=== PATIENT | female | born 1970 | race Caucasian/White ===

== ENCOUNTER 2018-03-09 17:19 | Emergency (ER) | payer OTHER ==
[~2018-03-09] VITALS: Ht 172.7 cm; Wt 56.7 kg
[2018-03-09 18:19] LABS: URINE BILIRUBIN NEGATIVE (Negative); URINE BLOOD 3+ (Negative); URINE CLARITY TURBID; URINE COLOR YELLOW; URINE GLUCOSE-RANDOM* NEGATIVE (Negative); URINE KETONES NEGATIVE (Negative); URINE PROTEIN (DIPSTICK) 2+ (Negative); URINE SPECIFIC GRAVITY >= 1.030 (1.005-1.035); URINE UROBILINOGEN 0.2 E.U./dl (0.2-1.0)
[2018-03-09 18:23] LABS: URINE LEUKOCYTES-REFLEX 3+ (Negative); URINE NITRITE-REFLEX POSITIVE (Negative)
[2018-03-09 18:25] LABS: URINE RBC >20 Many /HPF (0-2)
[2018-03-09 18:26] LABS: BACTERIA-REFLEX >30 Many /HPF (None Seen); CASTS None Seen /LPF (None Seen); CRYSTALS None Seen /LPF (None Seen); SQUAMOUS 0-3 Few /LPF (0-3); URINE WBC-REFLEX >25 Many /HPF (0-5)
[2018-03-09 19:34] LABS: HEMATOCRIT 23.7 % (37.0-47.0); HEMOGLOBIN 7.2 gm/dL (12.0-15.0); MCH 24.2 pg (26.0-34.0); MCHC 30.4 g/dL (28.0-37.0); MCV 79.6 fL (80.0-100.0); RBC 2.98 mil/uL (4.20-5.00); RDW 17.9 % (10.5-14.5); WBC 6.5 thou/uL (4.0-11.0)
[2018-03-09 19:40] LABS: CALCIUM 8.8 mg/dL (8.5-10.1); CREATININE 0.7 mg/dL (0.6-1.0); POTASSIUM 3.7 mmol/L (3.5-5.1)
[2018-03-09 19:46] LABS: ALBUMIN 1.8 g/dL (3.4-5.0); TOTAL BILIRUBIN 0.2 mg/dL (<0.1-1.0); TOTAL PROTEIN 7.8 g/dL (6.4-8.2)
[2018-03-09] MEDS ORDERED: CIPRO500 MG PO (21:27)
[2018-03-09 23:43] VITALS: BP 93/59
== END 2018-03-09 23:44 | disposition home or self-care (01) ==
LOC: ER 17:19
PROVIDERS: Physician Assistant
DX: N39.0 Urinary tract infection, site not specified (principal); N32.89 Other specified disorders of bladder; Z88.1 Allergy status to other antibiotic agents; Z91.041 Radiographic dye allergy status; Z88.0 Allergy status to penicillin

== ENCOUNTER 2018-04-04 02:16 | Emergency (ER) | payer OTHER ==
[~2018-04-04] VITALS: Ht 172.7 cm; Wt 54.4 kg
[~2018-04-04 02:16] MED LIST: CIPRO500 MG PO
[2018-04-04] MEDS ORDERED: LIORESAL 10 MG10 MG PO (02:45)
[2018-04-04] MEDS ORDERED: DITROPAN XL5 M1 PO (02:46)
[2018-04-04] MEDS ORDERED: KLONOPIN2 MG PO (02:46)
[2018-04-04 03:08] LABS: CALCIUM 8.3 mg/dL (8.5-10.1); CREATININE 0.8 mg/dL (0.6-1.0); POTASSIUM 3.9 mmol/L (3.5-5.1)
[2018-04-04 03:21] LABS: ABSOLUTE NEUTROPHILS 3.7 thou/uL (1.4-8.2); BASOPHILS 0.5 % (0.0-2.0); EOSINOPHILS 1.5 % (0.0-3.0); HEMOGLOBIN 7.2 gm/dL (12.0-15.0); LYMPHOCYTES 17.7 % (24.0-44.0); MCH 22.9 pg (26.0-34.0); MCHC 29.8 g/dL (28.0-37.0); MCV 76.8 fL (80.0-100.0); PLATELET COUNT 299 thou/uL (150-400); POLYS 72.3 % (36.0-66.0); RBC 3.13 mil/uL (4.20-5.00); RDW 17.3 % (10.5-14.5); WBC 5.1 thou/uL (4.0-11.0)
[2018-04-04 03:21] LABS: URINE BILIRUBIN NEGATIVE (Negative); URINE BLOOD 3+ (Negative); URINE CLARITY TURBID; URINE COLOR YELLOW; URINE GLUCOSE-RANDOM* NEGATIVE (Negative); URINE KETONES NEGATIVE (Negative); URINE LEUKOCYTES-REFLEX 3+ (Negative); URINE NITRITE-REFLEX POSITIVE (Negative); URINE PROTEIN (DIPSTICK) 2+ (Negative); URINE SPECIFIC GRAVITY 1.025 (1.005-1.035); URINE UROBILINOGEN 0.2 E.U./dl (0.2-1.0)
[2018-04-04 03:26] LABS: BACTERIA-REFLEX >30 Many /HPF (None Seen); CASTS None Seen /LPF (None Seen); CRYSTALS None Seen /LPF (None Seen); MUCUS 0-3 Light strn/LPF (None Seen); SQUAMOUS 0-3 Few /LPF (0-3); URINE RBC >20 Many /HPF (0-2); URINE WBC-REFLEX >25 Many /HPF (0-5)
[2018-04-04 03:27] LABS: TRANSITIONAL EPITHEL CELL 0-3 Few /LPF (None Seen)
[2018-04-04 05:31] LABS: % SATURATION 19 % (20-39); IRON 23 ug/dL (50-170); TIBC 118 ug/dL (250-450)
[2018-04-04 05:52] VITALS: BP 78/45
[2018-04-04] MEDS ORDERED: POTASSIUM20 PO (17:19)
== END 2018-04-04 05:52 | disposition home or self-care (01) ==
LOC: ER 02:16
PROVIDERS: Emergency Medicine
DX: D50.9 Iron deficiency anemia, unspecified (principal); N39.0 Urinary tract infection, site not specified; Z88.0 Allergy status to penicillin; Z88.1 Allergy status to other antibiotic agents; Z91.041 Radiographic dye allergy status

== ENCOUNTER 2018-04-04 15:06 | Emergency (ER) | payer OTHER ==
[~2018-04-04] VITALS: Ht 172.7 cm; Wt 55.8 kg
--- NOTE | ~2018-04-04 | EKG ---
[facility] [employer] [place] [address] ELECTROCARDIOGRAM REPORT Name: SAMREEN DURAN Room #: MEHDI Coulter#: [id number] Admission: 04/04/18 Attend Phys: Discharge: Date of : 74 Report #: [id number] THIS REPORT FOR: //name// [facility] ED Test Date: 2018-04-04 Test Time: 15:44:29 Pat Name: SAMREEN DURAN Department: Room: Gender: F [employer] Superintendent: ALEKSANDRA : 1970 Requested By: Fatuma Lind Order Number: [id number] MD: Measurements Intervals [place] Rate: 65 P: 30 ME: 176 QRS: -35 QRSD: 87 T: 59 QT: 461 QTc: 480 Interpretive Statements Sinus rhythm Left axis deviation RSR' in V1 or V2, right VCD or RVH No previous ECG available for comparison [email or web address] By: [id number] Epiphany EpiphanyMD /EPI
[~2018-04-04 15:06] MED LIST changes: +DITROPAN XL5 M1 PO; +KLONOPIN2 MG PO; +LIORESAL 10 MG10 MG PO
[2018-04-04 15:52] LABS: ABSOLUTE NEUTROPHILS 3.6 thou/uL (1.4-8.2); BASOPHILS 0.5 % (0.0-2.0); EOSINOPHILS 1.3 % (0.0-3.0); HEMATOCRIT 24.3 % (37.0-47.0); HEMOGLOBIN 7.5 gm/dL (12.0-15.0); LYMPHOCYTES 20.3 % (24.0-44.0); MCHC 30.7 g/dL (28.0-37.0); MCV 78.2 fL (80.0-100.0); MONOCYTES 9.8 % (1.0-8.0); PLATELET COUNT 331 thou/uL (150-400); POLYS 68.1 % (36.0-66.0); RBC 3.11 mil/uL (4.20-5.00); RDW 17.9 % (10.5-14.5); WBC 5.3 thou/uL (4.0-11.0)
[2018-04-04 16:01] LABS: CALCIUM 8.1 mg/dL (8.5-10.1); CREATININE 0.8 mg/dL (0.6-1.0)
[2018-04-04 16:06] LABS: ALBUMIN 1.8 g/dL (3.4-5.0); TOTAL BILIRUBIN 0.2 mg/dL (<0.1-1.0); TOTAL PROTEIN 8.1 g/dL (6.4-8.2)
[2018-04-04 16:43] LABS: URINE CLARITY CLOUDY; URINE COLOR YELLOW
[2018-04-04 16:44] LABS: URINE GLUCOSE-RANDOM* NEGATIVE (Negative); URINE KETONES NEGATIVE (Negative); URINE PROTEIN (DIPSTICK) 1+ (Negative)
[2018-04-04 16:45] LABS: URINE BILIRUBIN NEGATIVE (Negative); URINE BLOOD 3+ (Negative); URINE NITRITE-REFLEX NEGATIVE (Negative); URINE SPECIFIC GRAVITY > 1.030 (1.005-1.035)
[2018-04-04 16:46] LABS: URINE LEUKOCYTES-REFLEX 1+ (Negative); URINE UROBILINOGEN 0.2 E.U./dl (0.2-1.0)
[2018-04-04 16:53] LABS: BACTERIA-REFLEX >30 Many /HPF (None Seen); CASTS None Seen /LPF (None Seen); SQUAMOUS >10 Many /LPF (0-3); URINE WBC-REFLEX >25 Many /HPF (0-5)
[2018-04-04 16:54] LABS: AMORPHOUS URATES Many /LPF (None Seen); WBC CLUMPS Few (None Seen)
[2018-04-04] MEDS ORDERED: POTASSIUM20 PO (17:19)
[2018-04-04 19:42] VITALS: BP 75/42
== END 2018-04-04 19:49 | disposition home or self-care (01) ==
LOC: ER 15:06
PROVIDERS: Physician Assistant
DX: E87.6 Hypokalemia (principal); I95.9 Hypotension, unspecified; N39.0 Urinary tract infection, site not specified; D64.9 Anemia, unspecified; R53.1 Weakness

== ENCOUNTER 2018-04-05 02:23 | Inpatient (IN) | payer OTHER ==
[2018-04-05] VITALS (29 sets, daily range): BP systolic 71–139; BP diastolic 32–71
[~2018-04-05] VITALS: Ht 172.7 cm; Wt 58.2 kg
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
[~2018-04-05 02:23] MED LIST changes: +POTASSIUM20 PO
[2018-04-05 03:29] LABS: ABSOLUTE NEUTROPHILS 4.1 thou/uL (1.4-8.2); HEMATOCRIT 21.3 % (37.0-47.0); MCV 79.8 fL (80.0-100.0); RBC 2.67 mil/uL (4.20-5.00); WBC 5.4 thou/uL (4.0-11.0)
[2018-04-05 03:31] LABS: BASOPHILS 0.6 % (0.0-2.0); EOSINOPHILS 0.8 % (0.0-3.0); LYMPHOCYTES 14.2 % (24.0-44.0); MCH 23.9 pg (26.0-34.0); MONOCYTES 7.8 % (1.0-8.0); POLYS 76.6 % (36.0-66.0); RDW 17.6 % (10.5-14.5)
[2018-04-05 03:36] LABS: HEMOGLOBIN 6.4 gm/dL (12.0-15.0); PLATELET COUNT 225 thou/uL (150-400)
[2018-04-05 03:56] LABS: CALCIUM 7.3 mg/dL (8.5-10.1); CREATININE 0.8 mg/dL (0.6-1.0)
[2018-04-05 03:59] LABS: POTASSIUM 4.9 mmol/L (3.5-5.1)
[2018-04-05 04:08] LABS: ANISOCYTOSIS 1+; HYPOCHROMASIA 1+
[2018-04-05 04:09] LABS: MICROCYTES FEW
--- NOTE | 2018-04-05 08:51 | NUR ---
ASSUMED CARE OF PT AT 0530 DURING ADMISSION TO UNIT. PT ANSWERED A FEW QUESTIONS BUT WAS MOSTLY MOANING. ACTIVE IN PT CARE AND ANSWERED MOST OF ASSMT QUESTIONS. BP's SOFT W/ SBP RUNNING 70- LOW 100s. NO PROGRESSION TOWARDS POC GOALS THIS SHIFT. REPORT GIVEN TO DAY RN.
--- NOTE | 2018-04-05 15:39 | NUR ---
ASSUMED PATIENT CARE AT 0715. A&OX1. PATIENT APPEARS TO BE IN PAIN BUT WHEN ASKED IF THEY ARE IN PAIN PATIENT SHAKES HEAD NO. BLOOD PRESSURES HAVE BEEN LOW 70S/40S SOMEWHAT BETTER AFTER BLOOD TRANSFUSION, 90S/50S. LOW TEMPS IN THE MORNING, SEE CHARTING. XAVIER HUGGER PLACED WITH GOOD RESULTS. PATIENT BECOMING MORE ALERT THROUGHOUT THE DAY. SPOUSE STATES PATIENT HAS BEEN SLEEP FOR THREE DAYS PRIOR TO ADMIT. THIS NURSE HAS BEEN UNABLE TO GIVE ANY PO MEDS DUE TO PATIENT BEING UNABLE TO FOLLOW ANY COMMANDS AND LEVEL OF DROWSINESS. PATIENT HAS MULTIPLE WOUNDS ON BOTTOM. WOUND ROUNDED ON PATIENT TODAY AND WROTE WOUND CARE ORDERS. DRESSINGS CHANGED BY THIS NURSE TODAY. PICTURES TAKEN TODAY. PATIENT WAS PLANNED TO HAVE A CYSTOSCOPY AT [place] TOMORROW, DR. LEYVA AND SPOUSE DISCUSSED PLAN AND SPOUSE WOULD LIKE TO RESCHEDULE PROCEDURE SO PATIENT CAN STAY IN THIS HOSPITAL FOR TREATMENT. PATIENT VERY SLOWLY WORKING TOWARDS GOALS.
--- NOTE | 2018-04-05 17:23 | NUR ---
PATIENT TRANSFERRED TO ICU FROM 3W THIS EVENING, HYPOTENSIVE AND NS BOLUS BEING ADMINISTERED. STARTED ON LEVO FOR BP SUPPORT. OTHER VITALS STABLE. DROWSY BUT AROUSABLE AND ORIENTED TO PERSON AND PLACE. HAS DENIED PAIN THUS FAR. SPOUSE ALREADY NOTIFIED BY 3W RN AND ARRIVED SHORTLY AFTER. ICU GUIDELINES AND PRIVACY CODE GIVEN TO SPOUSE. WILL CONTINUE TO MONITOR CLOSELY.
[2018-04-05 17:43] LABS: HEMATOCRIT 30.5 % (37.0-47.0); HEMOGLOBIN 9.5 gm/dL (12.0-15.0); MCH 24.4 pg (26.0-34.0); MCHC 31.1 g/dL (28.0-37.0); MCV 78.6 fL (80.0-100.0); RBC 3.88 mil/uL (4.20-5.00); RDW 16.8 % (10.5-14.5); WBC 5.2 thou/uL (4.0-11.0)
[2018-04-05 17:51] LABS: CALCIUM 8.1 mg/dL (8.5-10.1); CREATININE 0.7 mg/dL (0.6-1.0); POTASSIUM 4.4 mmol/L (3.5-5.1)
[2018-04-06] VITALS (45 sets, daily range): BP systolic 90–127; BP diastolic 43–69
[2018-04-06 05:31] LABS: HEMATOCRIT 26.2 % (37.0-47.0); HEMOGLOBIN 7.9 gm/dL (12.0-15.0); MCH 23.8 pg (26.0-34.0); MCHC 30.1 g/dL (28.0-37.0); MCV 79.2 fL (80.0-100.0); RBC 3.31 mil/uL (4.20-5.00); WBC 3.8 thou/uL (4.0-11.0)
[2018-04-06 05:45] LABS: ALBUMIN 1.5 g/dL (3.4-5.0); CALCIUM 7.6 mg/dL (8.5-10.1); CREATININE 0.7 mg/dL (0.6-1.0); TOTAL BILIRUBIN 0.2 mg/dL (<0.1-1.0)
--- NOTE | 2018-04-06 06:05 | NUR ---
ASSUMED CARE @1900 04/05/18, PT ASSESSMENTS AND VSS COMPLETE PER ICU PROTOCOL, PT INITIALLY ONLY ALERT TO SELF, PT WAS MOANING CONSTANTLY LIKE SHE WAS IN PAIN, RN CALLED GI TO ASK ABOUT BASELINE. DR LEYVA CALLED ABOUT CONCERNS,NEW ORDERS RECIEVED. PT TAKEN TO CT FOR CT OF THE HEAD, PT TOLERATED IT WELL. AT 0400 04/06/18, PT ABLE TO ANSWER MORE QUESTIONS, ABLE TO HOLD A WHOLE CONVERSATION, PT ATE HER DINNER OF LAST NITE, WITHOUT COMPLICATION, PT ABLE TO TAKE MEDICATIONS. THIS AM PT COMPLAINS OF BACK PAIN, PT TELLS RN THAT SHE TAKES TEA AT HOME TO HELP WITH BACK PAIN, RN MAKES PT TEA. PT ABLE TO VOICE CONCERNS. LEVO OFF SINCE LAST NITE, MAP HAS MAINTAINED ABOVE 60, NO EDEMA PRESENT. PT ON RA, SATS IN THE HIGH 90'S. BAIG IN PLACE, URINE STILL VERY CLOUDY AT THIS TIME, ZOSYN RUNNING INTERMITTENTLY THROUGH OUT THE NIGHT. WOUND PRESENT ON HER BOTTOM, WOUND CONSULT IN PLACE, PT KEPT OFF HER BOTTOM. FALL PRECAUTIONS IN PLACE, WILL CONTINUE TO MONITOR.
[2018-04-06 07:42] LABS: % SATURATION 25 % (20-39); IRON 28 ug/dL (50-170); TIBC 111 ug/dL (250-450)
[2018-04-06 08:09] LABS: FOLIC ACID 18.8 ng/mL (8.6-58.9)
--- NOTE | 2018-04-06 09:08 | NUR ---
Assess due to notification of multiple pressure ulcers, chronic due to hx paraplegia. Wound care to see. Admitted with dehydation, UTI. Visit with pt this am, states she has healthy appetite and eats high protein foods. Wts from recent admit last mo, show decrease 11 lb but will see how wts respond with rehydration. Pt does not want any oral supplements. Likely transfer out of facility soon. Low nutrition risk.
--- NOTE | 2018-04-06 18:07 | NUR ---
PT AWAKE, CONFUSED THIS AM. THIS AFTERNOON MORE DROWSY. TURNED Q2HS. MORPHINE GIVEN X1 FOR WOUND/BUTTOCKS PAIN. ASSISTED WITH FEEDING TODAY. PT'S AT BEDSIDE AND UPDATED. CASE MANAGEMENT CONSULTED AND ASSISTING WITH POSSIBLE TRANSFER [facility] FOR UROLOGY CONSULT. VSS. WILL CONTINUE TO MONITOR PATIENT.
[2018-04-07] VITALS (23 sets, daily range): BP systolic 101–133; BP diastolic 54–85
[2018-04-07 04:21] LABS: HEMATOCRIT 26.7 % (37.0-47.0); MCH 23.9 pg (26.0-34.0); MCV 79.7 fL (80.0-100.0); RBC 3.35 mil/uL (4.20-5.00); RDW 16.8 % (10.5-14.5); WBC 4.4 thou/uL (4.0-11.0)
[2018-04-07 04:57] LABS: CALCIUM 7.9 mg/dL (8.5-10.1); CREATININE 0.7 mg/dL (0.6-1.0)
[2018-04-07 05:04] LABS: POTASSIUM 4.4 mmol/L (3.5-5.1)
--- NOTE | 2018-04-07 07:20 | NUR ---
ASSUMED CARE OF PT AT 1900. PT MOANING, GRIMACING, AND HAVING ARM SPASMS; PT ASLEEP AT THIS TIME. PT EASILY AROUSED AND ASKED IF SHE IS HAVING PAIN OR IS UNCOMFORTABLE, PT SAID 'NO'. IT DID NOT TAKE LONG FOR PT TO FALL BACK ASLEEP AND THESE BEHAVIORS TO START UP AGAIN. PT MUCH CALMER AFTER GIVEN CLONAZEPAM AND BACLOFEN. AROUND MN, PT STARTED BEHAVIORS AGAIN. PT GIVEN ATIVAN X1 AND MORPHINE X1. PT WAS NO LONGER MOANING, BUT MOVEMENTS AND GRIMACE CONTINUED INTERMITTENTLY. PT MORE DROWSY AND DISORIENTED THIS AM. PT STILL ABLE TO BE AROUSED, BUT DOES NOT STAY AWAKE LONG ENOUGH TO HOLD A CONVERSATION. ANSWERS YES OR NO TO QUESTIONS, AND IS SLOW TO RESPOND. VSS. WILL CONTINUE TO MONITOR.
[2018-04-07 14:53] LABS: HEMATOCRIT 29.4 % (37.0-47.0); MCH 24.4 pg (26.0-34.0); MCHC 30.8 g/dL (28.0-37.0); MCV 79.3 fL (80.0-100.0); RBC 3.71 mil/uL (4.20-5.00); RDW 16.8 % (10.5-14.5); WBC 3.5 thou/uL (4.0-11.0)
[2018-04-07 15:09] LABS: CREATININE 0.6 mg/dL (0.6-1.0)
[2018-04-07 15:14] LABS: ALBUMIN 1.4 g/dL (3.4-5.0); TOTAL BILIRUBIN 0.2 mg/dL (<0.1-1.0); TOTAL PROTEIN 6.6 g/dL (6.4-8.2)
--- NOTE | 2018-04-07 16:54 | NUR ---
PATIENT REMAINS LETHARGIC TODAY, AT BEDSIDE OFF AND ON THROUGHOUT THE DAY. PATIENT ABLE TO FOLLOW MINIMAL COMMANDS THIS AM, BY THIS AFTERNOON PATIENT NOT JFOLLOWING COMMANDS AND IS UNABLE TO TAKE HER PILLS. DR LEYVA NOTIFIED AND ORDERS RECIEVED TO RUN LAB WORK AND PUT SEDATING MEDICATIONS ON HOLD. DR LEYVA SPOKE WITH PATIENT'S ABOUT PLAN. NO FURTHER CONCERNS AT THIS TIME. WILL CONTINUE TO MONITOR AND CARE PER PLAN OF CARE.
[2018-04-08] VITALS (22 sets, daily range): BP systolic 109–162; BP diastolic 60–95
--- NOTE | 2018-04-08 07:51 | NUR ---
ASSUMED CARE @1900 PT ASSESSMENTS AND VSS COMPLETE PER ICU PROTOCOL. PT INITIALLY WAS ALERT TO HER NAME ONLY BUT AT THE LAST ASSESSMENT 0400, PT WAS NOT TO RESPONDING WHEN I ASKED HER TO TELL ME HER NAME, SHE JUST MOANED, BUT WHEN DR LEYVA CAME TO THE BEDSIDE TO TALK TO PT THIS AM, PT WAS ABLE TO TELL HIM HER NAME AND THE HOSPITAL NAME. PT IS SR, PULSES OK. PT ON RA, SATS IN THE HIGH 90'S. BAIG IN PLACE, URINE STILL VERY CLOUDY AND SEDIMENTS PRESENT, ON ABX. PLAN OF CARE CONT TO MONITOR.
--- NOTE | 2018-04-08 08:44 | NUR ---
ATROPINE PULLED OUT OF PYXIS TWO DAYS AGO BY ME BECAUSE PT HR DROPPED TO THE 30'S, I ENDED UP NOT GIVING THIS. I CALLED PHARMACY I WAS INSTRUCTED TO TUBE IT DOWN TO THE PHARMACY IN ORDER FOR PT TO BE CREDITED.
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
--- NOTE | 2018-04-08 16:32 | NUR ---
WOUND CONSULT: PT. REFUSED TO BE SEEN TODAY. PT. STATES THAT SHE IS HAVING TO MUCH PAIN. PT. IS AT BEDSIDE AND REQUEST THAT WOUND CARE COME BACK TOMORROW. RECOMMENDATIONS: CONTINUE TO ENCOURAGE PT. TO ALLOW CARES. PT. AND STAFF NURSE WERE INSTRUCTED ON PLAN OF CARE.
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
[2018-04-09] VITALS (23 sets, daily range): BP systolic 129–162; BP diastolic 69–94
[2018-04-09 05:32] LABS: HEMATOCRIT 27.8 % (37.0-47.0); HEMOGLOBIN 8.5 gm/dL (12.0-15.0); MCH 24.3 pg (26.0-34.0); MCHC 30.8 g/dL (28.0-37.0); MCV 79.1 fL (80.0-100.0); RBC 3.51 mil/uL (4.20-5.00); RDW 16.5 % (10.5-14.5); WBC 7.3 thou/uL (4.0-11.0)
--- NOTE | 2018-04-09 05:40 | NUR ---
NO EVENT IN THIS SHIFT. PT REMAIN STABLE. AAOX3 WITH PERIOD OF CONFUSION. SB WHEN SHE IS SLEEPING, OTHERWISE SR /SA RATE WNL. AFEBRILE ,BP STABLE. BAIG TO DD. HER URINE IS VERY FOUL WITH LARGE THICKED SEDIMENT IN LINE; IRRIGATED BAIG PER STERILE TECHNIQUE WITH 30 CC OF STERILE WATER. ALL 30 CC RETURNED. SHE IS WELL JESSIE PROCEDURE. NO CHANGES OF SKIN ISSUES. DRESSING CHANGED COMPLETE IN THIS SHIFT. SLOWLY MAKING PROGRESS TOWARD PLAN OF CARES.
[2018-04-09 05:53] LABS: CALCIUM 7.7 mg/dL (8.5-10.1); CREATININE 0.7 mg/dL (0.6-1.0)
[2018-04-10] VITALS (13 sets, daily range): BP systolic 125–148; BP diastolic 68–88
--- NOTE | 2018-04-10 01:23 | NUR ---
ASSUMED CARE OF PT AT 1900. PT SLIGHTLY DROWSY, BUT ALERT AND RESPONSIVE. PT CONFUSED AND FORGETFUL. PT STATES THAT SHE IS TIRED, BUT HAS NOT SLEPT MUCH TONIGHT. LARGE BM AT THE BEGINNING OF THE NIGHT; PT WAS IMPACTED, AND SOME STOOL WAS REMOVED MANUALLY BY RN. PT CONSEQUENTLY REFUSED STOOL SOFTNER. DRESSINGS FOR PRESSURE WOUNDS CHANGED. PT REFUSED TO BE TURNED EARLIER IN THE SHIFT AND INSISTED SHE WANTED TO STAY ON HER BACK. EDUCATION GIVEN ON IMPORTANCE OF TURNING/REPOSITIONING. LATER ON, PT AGREED TO BEING TURNED. URINE OUTPUT HAS BEEN ADEQUATE, BUT URINE CONTINUES TO BE CLOUDY AND HAS LARGE AMOUNTS OF SEDIMENT. POTASSIUM 3.0 ON YESTERDAYS AM LABS. HANDBAG FRAMER FOR HOSPITALIST CALLED (COVERING FOR DR. LEYVA) AND ONE DOSE OF 40 MEQ KCL PO ORDERED. BMP ORDERED FOR AM, WILL REEVALUATE POTASSIUM LEVEL THEN. PLAN IS FOR PT TO DC WHEN TREATMENT IS COMPLETE HERE AND THEN FOR HER TO FOLLOW UP WITH A UROLOGIST AN OUTPATIENT. WILL CONTINUE TO MONITOR.
[2018-04-10 06:52] LABS: CALCIUM 7.4 mg/dL (8.5-10.1); CREATININE 0.7 mg/dL (0.6-1.0); POTASSIUM 3.3 mmol/L (3.5-5.1)
[2018-04-10] MEDS ORDERED: AUGMENTIN 875-1 EACH PO (12:09)
--- NOTE | 2018-04-10 13:22 | NUR ---
[facility] DECLINED PT YESTERDAY AFTER [facility] DR KEITH LEYVA. PT AND HER SPOUSE WERE NOTIFIED 04/09/18 AND AGREEABLE TO DC FROM [facility] THEN F/U OUTPT AT [facility] UROLOGY. PLANS FOR DC HOME TODAY. MET WITH PT AND SPOUSE THIS AM AND DISCUSSED WITH DR. GARRETT COVERING FOR DR. LEYVA TODAY. OFFERED ASSIST WITH VOUCHING TRANSPORT HOME FOR PT BUT SPOUSE DECLINED AND HE WILL PROVIDE TRANSPORT. 1 SCRIPT FOR AUGMENTIN TO [facility] OUTPT PHARM AND PHARM NOTIFED HAS MEDICAID WITH [employer] AND IF ISSUE WITH [employer], CM DEPT WILL VOUCH FOR MED. PHARMACIST CALLED TO REPORT PCN ALLERGY ON THEIR COMPUTER. [place] SHOWS [facility] AND CALLED SPOUSE WHO VERIFIES NO [employer]KNOWN DRUG ALLERGIES AND PT HAS TAKEN AUGMENTIN BEFORE WITHOUT INCIDENT. TECHNICAL ASST DEB UPDATED.
--- NOTE | 2018-04-10 14:43 | NUR ---
ASSUMED CARE OF PT AT 0700 THIS SHIFT. PT HAS BEEN SOMEWHAT COOPERATIVE, HAS DENIED ANY PAIN, HOWEVER HAS HIGH LEVELS OF ANXIETY. PT HAS BEEN WANTING TO BE DISCHARGED AND GO HOME SINCE THIS MORNING, HAS CONSTANT NEED OF TO BE NEARBY. PT WAS SEEN BY HOSPITALIST AND DISCHARGED HOME. ASSESSMENTS ARE DOCUMENTED. PT HAS HAD IN ROOM MOST OF THIS SHIFT, EDUCATION WAS PROVIDED. PLAN OF CARE IS TO DISCHARGE PT HOME THIS SHIFT. SCRIPTS WERE FAXED TO PHARMACY, DISCHARGE PAPERWORK GIVEN.
== END 2018-04-10 13:30 | disposition home or self-care (01) | DRG 871 ==
LOC: ER 02:23 → EROBS 04:32 → ICU 04:32 → 3W 05:38 → ICU 16:45
PROVIDERS: Emergency Medicine; Nurse Practitioner Acute Care; ADMIT Family Medicine
PROC: 30233N1 Transfusion of Nonautologous Red Blood Cells into Peripheral Vein, Percutaneous Approach (ICD-10-PCS; principal; 2018-04-05)
DX: A41.9 Sepsis, unspecified organism (principal); L89.154 Pressure ulcer of sacral region, stage 4; L89.304 Pressure ulcer of unspecified buttock, stage 4; G82.50 Quadriplegia, unspecified; N39.0 Urinary tract infection, site not specified; G82.20 Paraplegia, unspecified; E87.6 Hypokalemia; I95.9 Hypotension, unspecified; D63.8 Anemia in other chronic diseases classified elsewhere; N32.9 Bladder disorder, unspecified; Z79.899 Other long term (current) drug therapy; Z87.81 Personal history of (healed) traumatic fracture; Z87.891 Personal history of nicotine dependence; Z87.828 Personal history of other (healed) physical injury and trauma
CPT/HCPCS: 10078

== ENCOUNTER 2018-05-02 00:34 | Emergency (ER) | payer OTHER ==
[~2018-05-02] VITALS: Ht 172.7 cm; Wt 50.8 kg
[~2018-05-02 00:34] MED LIST changes: +AUGMENTIN 875-1 EACH PO
[2018-05-02 01:52] LABS: ANION GAP 7 mmol/L (7-16); BUN 17 mg/dL (7-18); CALCIUM 8.4 mg/dL (8.5-10.1); CHLORIDE 101 mmol/L (98-107); CO2 28 mmol/L (21-32); CREATININE 0.8 mg/dL (0.6-1.0); GLUCOSE 105 mg/dL (74-106); POTASSIUM 4.4 mmol/L (3.5-5.1); SODIUM 136 mmol/L (136-145)
[2018-05-02 01:56] LABS: HEMOGLOBIN 7.8 gm/dL (12.0-15.0); RBC 3.26 mil/uL (4.20-5.00); WBC 8.8 thou/uL (4.0-11.0)
[2018-05-02 01:58] LABS: ALBUMIN 1.9 g/dL (3.4-5.0); DIRECT BILIRUBIN < 0.1 mg/dL (<0.1-0.3); LIPASE 122 U/L (73-393); SGOT 13 U/L (15-37); SGPT 9 U/L (30-65); TOTAL BILIRUBIN 0.2 mg/dL (<0.1-1.0); TOTAL PROTEIN 8.1 g/dL (6.4-8.2)
[2018-05-02 02:01] LABS: BASOPHILS 0.6 % (0.0-2.0); EOSINOPHILS 1.4 % (0.0-3.0); HEMATOCRIT 24.9 % (37.0-47.0); LYMPHOCYTES 12.2 % (24.0-44.0); MCHC 31.3 g/dL (28.0-37.0); MCV 76.5 fL (80.0-100.0); MONOCYTES 6.2 % (1.0-8.0); PLATELET COUNT 333 thou/uL (150-400); POLYS 79.6 % (36.0-66.0); RDW 19.1 % (10.5-14.5)
[2018-05-02 02:08] LABS: URINE BILIRUBIN NEGATIVE (Negative); URINE CLARITY SL.CLOUDY; URINE COLOR YELLOW; URINE GLUCOSE-RANDOM* NEGATIVE (Negative); URINE KETONES NEGATIVE (Negative); URINE PROTEIN (DIPSTICK) TRACE (Negative); URINE SPECIFIC GRAVITY >= 1.030 (1.005-1.035)
[2018-05-02 02:09] LABS: URINE BLOOD 3+ (Negative); URINE LEUKOCYTES-REFLEX TRACE (Negative); URINE NITRITE-REFLEX POSITIVE (Negative); URINE UROBILINOGEN 0.2 E.U./dl (0.2-1.0)
[2018-05-02 02:12] LABS: BACTERIA-REFLEX >30 Many /HPF (None Seen); HYALINE CASTS 0-3 Few /LPF (None Seen); MUCUS 0-3 Light strn/LPF (None Seen); SQUAMOUS 4-10 Moderate /LPF (0-3); URINE WBC-REFLEX 6-15 Few /HPF (0-5)
[2018-05-02 02:13] LABS: CRYSTALS None Seen /LPF (None Seen); WBC CLUMPS Occasional (None Seen)
[2018-05-02] MEDS ORDERED: ZOFRAN ODT4 MG DISSOLVE (03:57)
[2018-05-02 04:13] VITALS: BP 97/54
== END 2018-05-02 04:25 | disposition home or self-care (01) ==
LOC: ER 00:34
PROVIDERS: Emergency Medicine
DX: N39.0 Urinary tract infection, site not specified (principal); K59.00 Constipation, unspecified